=== PATIENT | female | born 1985 | race Caucasian/White ===

== ENCOUNTER 2017-07-20 22:22 | Emergency (ER) | payer SELFPAY ==
--- NOTE | 2017-07-20 22:55 | NUR ---
PATIENT LEFT WITHOUT BEING SEEN BY DR. TOLENTINO. NO FURTHER CARE PROVIDED FOR PATIENT.
== END 2017-07-20 22:57 | disposition left against medical advice (07) ==
LOC: MED 22:57
DX: Z53.21 Procedure and treatment not carried out due to patient leaving prior to being seen by health care provider (principal)

== ENCOUNTER 2022-06-01 23:45 | Emergency (ER) | payer MEDICAID ==
[~2022-06-01] VITALS: Ht 162.6 cm; Wt 72.6 kg
[2022-06-02] VITALS: BP 186/85
--- NOTE | 2022-06-02 00:23 | NUR ---
Blood for labwork drawn from left arm per ripsaw grader. Patient tolerated well.
[2022-06-02 00:30] LABS: APPEARANCE,URINE CLEAR (CLEAR); BILIRUBIN,URINE NEGATIVE (NEGATIVE); BLOOD, URINE NEGATIVE (NEGATIVE); COLOR,URINE YELLOW (YELLOW); LEUKOCYTE ESTERASE ,URINE NEGATIVE (NEGATIVE); NITRITE, URINE NEGATIVE (NEGATIVE); UGLUCOSE NEGATIVE (NEGATIVE)
[2022-06-02 00:30] LABS: BASOPHILS # (AUTO) 0.1 K/uL (0.00-0.22); BASOPHILS % (AUTO) 0.4 % (0.0-2.0); EOSINOPHILS % (AUTO) 0.3 % (0.0-4.0); HEMATOCRIT 39.1 % (36-48); HEMOGLOBIN 13.2 g/dL (12.0-16.0); LYMPHOCYTES # (AUTO) 1.9 K/uL (2.5-16.5); LYMPHOCYTES % (AUTO) 12.1 % (20.5-51.1); MEAN CORPUSCULAR HEMOGLOBIN 31 pg (27-31); MEAN CORPUSCULAR HGB CONC 34 g/dL (33-37); MEAN CORPUSCULAR VOLUME 90.1 fL (80-94); MONOCYTES # (AUTO) 0.8 K/uL (0.8-1.0); MONOCYTES % (AUTO) 5.4 % (1.7-9.3); NEUTROPHILS # (AUTO) 12.5 K/uL (1.8-7.7); NEUTROPHILS % (AUTO) 81.8 % (42.2-75.2); PLATELET COUNT (AUTO) 349 K/uL (140-450); RED BLOOD CELL COUNT(AUTO) 4.34 MIL/uL (4.20-5.40); RED CELL DISTRIBUTION WIDTH 13.1 % (11.6-13.7); WHITE BLOOD COUNT (AUTO) 15.4 K/uL (4.8-10.8)
[2022-06-02 00:55] LABS: ALBUMIN 4.2 g/dL (3.4-5.0); ANION GAP 9.1 (8-16); CARBON DIOXIDE 29.6 mmol/L (21-32); CREATININE 0.7 mg/dL (0.6-1.3); POTASSIUM 3.7 mmol/L (3.5-5.1); TOTAL BILIRUBIN 0.4 mg/dL (0.0-1.0)
--- NOTE | 2022-06-02 00:59 | NUR ---
Dr. Girard examining patient.
[2022-06-02] MEDS ORDERED: KETOROLAC 30 MG/ML VIAL IM ONE (01:05)
[2022-06-02] MEDS ORDERED: ONDANSETRON 4 MG ODT PO ONE (01:05)
[2022-06-02] MEDS ORDERED: DICYCLOMINE HCL LIQUID 20 MG, ALUMINUM HYD/MAG/SIMETHICONE 30 ML, LIDOCAINE VISCOUS 2% ... PO ONE ×3 (02:05)
[2022-06-02] MEDS ORDERED: DICYCLOMINE HCL LIQUID 10 MG/5 ML UDC ONE (03:03)
[2022-06-02] MEDS ORDERED: ALUMINUM HYD/MAG/SIMETHICONE 30 ML UDC ONE (03:03)
--- NOTE | 2022-06-02 03:07 | NUR ---
Patient waited inside her car.
[2022-06-02] MEDS ORDERED: MAG-27 PO (05:02)
[2022-06-02 05:19] VITALS: BP 152/85
--- NOTE | 2022-06-02 05:19 | NUR ---
Patient D/C without D/C papers.
== END 2022-06-02 05:19 | disposition home or self-care (01) ==
LOC: MED 23:45
DX: R10.10 Upper abdominal pain, unspecified (principal); R11.2 Nausea with vomiting, unspecified; Z79.899 Other long term (current) drug therapy
CPT/HCPCS: 36415; 74176; 76705; 80053; 81003; 81025; 83690; 85025; 96372; 99285; J1885; Q0092; Q0162; 99283

== ENCOUNTER 2022-06-04 00:05 | Emergency (ER) | payer MEDICAID ==
[~2022-06-04] VITALS: Ht 162.6 cm; Wt 72.6 kg
[~2022-06-04 00:05] MED LIST: MAG-27 PO
[2022-06-04 00:10] VITALS: BP_SYST 162; BP_SYST 175; BP_DIAS 118; BP_DIAS 89
--- NOTE | 2022-06-04 00:24 | NUR ---
PT TAKEN TO BED 12
[2022-06-04 00:46] LABS: BASOPHILS # (AUTO) 0.1 K/uL (0.00-0.22); BASOPHILS % (AUTO) 0.4 % (0.0-2.0); EOSINOPHILS # (AUTO) 0.1 K/uL (0-0.4); EOSINOPHILS % (AUTO) 0.9 % (0.0-4.0); HEMATOCRIT 39.6 % (36-48); HEMOGLOBIN 13.3 g/dL (12.0-16.0); LYMPHOCYTES # (AUTO) 2.5 K/uL (2.5-16.5); LYMPHOCYTES % (AUTO) 16.1 % (20.5-51.1); MEAN CORPUSCULAR HEMOGLOBIN 30 pg (27-31); MEAN CORPUSCULAR HGB CONC 34 g/dL (33-37); MEAN CORPUSCULAR VOLUME 90.7 fL (80-94); MONOCYTES # (AUTO) 1.2 K/uL (0.8-1.0); MONOCYTES % (AUTO) 7.5 % (1.7-9.3); NEUTROPHILS # (AUTO) 11.7 K/uL (1.8-7.7); NEUTROPHILS % (AUTO) 75.1 % (42.2-75.2); PLATELET COUNT (AUTO) 328 K/uL (140-450); RED BLOOD CELL COUNT(AUTO) 4.36 MIL/uL (4.20-5.40); RED CELL DISTRIBUTION WIDTH 12.9 % (11.6-13.7); WHITE BLOOD COUNT (AUTO) 15.6 K/uL (4.8-10.8)
--- NOTE | 2022-06-04 00:50 | NUR ---
36 y/o female bibs from home, C/O Epigastric pain x today. Patient reported, had epigastric pain, headache, nausea, diarrhea. pt recently seen at [facility] and given Rx of mylanta, which pt states "does not work." denies blood in vomit or urine. skin is pink, warm, and dry. abd sounds in all quadrants, epigastric tenderness. a/ox4, gcs-15; ambulatory w/o assistance; unlabored breathing. PMHx: DENIES nka
--- NOTE | 2022-06-04 00:57 | NUR ---
phlebotomist lab assistant at bedside
[2022-06-04 01:09] LABS: ANION GAP 10.4 (8-16); CARBON DIOXIDE 29.3 mmol/L (21-32); CREATININE 0.7 mg/dL (0.6-1.3); POTASSIUM 3.7 mmol/L (3.5-5.1); TOTAL BILIRUBIN 0.2 mg/dL (0.0-1.0)
--- NOTE | 2022-06-04 01:15 | NUR ---
ERMD AT BEDSIDE EXAMINING PT
[2022-06-04] MEDS ORDERED: NACL 0.9% 1,000 ML IV ONE (01:25)
[2022-06-04] MEDS ORDERED: PROCHLORPERAZINE 10 MG/2 ML VIAL IVP ONE (01:25)
[2022-06-04] MEDS ORDERED: diphenhydrAMINE 50 MG/ML VIAL IVP ONE (01:25)
[2022-06-04] MEDS ORDERED: KETOROLAC 15 MG/ML VIAL IVP ONE (01:25)
[2022-06-04] MEDS ORDERED: PROC-66 PO (01:55)
[2022-06-04] MEDS ORDERED: DIPH25TA53 PO (01:55)
[2022-06-04 03:39] VITALS: BP 126/72
--- NOTE | 2022-06-04 03:40 | NUR ---
Patient discharged with v/s stable. Written and verbal after care instructions given and explained. Patient alert, oriented and verbalized understanding of instructions. Ambulatory with steady gait. All questions addressed prior to discharge. ID band removed. Patient advised to follow up with PMD. Rx of BENADRYL AND COMPAZINE given. Patient educated on indication of medication including possible reaction and side effects. Opportunity to ask questions provided and answered. A/OX4, VSS, AMBULATORY, UNLABORED BREATHING, AND CALM DEMEANOR.
== END 2022-06-04 03:40 | disposition home or self-care (01) ==
LOC: MED 00:05
DX: K52.9 Noninfective gastroenteritis and colitis, unspecified (principal); R51.9 Headache, unspecified; R11.0 Nausea; R19.7 Diarrhea, unspecified; Z79.899 Other long term (current) drug therapy
CPT/HCPCS: 36415; 80053; 81025; 83690; 85025; 96361; 96374; 96375; 99284; J0780; J1200; J1885; J7030